=== PATIENT | male | born 1975 | race African-American/Black ===

== ENCOUNTER 2017-05-18 13:58 | Emergency (ER) | payer OTHER ==
[~2017-05-18] VITALS: Ht 185.4 cm; Wt 81.6 kg
--- NOTE | ~2017-05-18 | US115 ---
[facility] RADIOLOGY TEXT RESULTS PATIENT: NAVJOT BELLA LOCATION: [facility] : 71 UNIT #: [id number] AGE: [address]: Morelia Moran APRN SEX: M ORDER DR: [id number] [facility] [address]. [place], [place] [address] [id number] MR#: [id number] Acc #: [id number] NAME: NAVJOT BELLA : 1975 SEX: M STUDY DATE/TIME: 05/18/2017 16:23 UNIT: [facility] ROOM: STUDY DESCRIPTION: US Scrotum and Contents Attending Physician: Morelia Moran A.P.R.N. Ordering Physician: Ed Cheng Wheeler M.D. Primary Care Physician: No Primary Care Physician MEDICAL IMAGING REPORT This report is preliminary unless electronic signature is present EXAMINATION Bilateral scrotal ultrasound with Doppler imaging. DATE 05/18/2017 HISTORY Scrotal pain for 3 months, intermittent pain after exertion. COMPARISON CT of the abdomen and pelvis, 09/12/2015. No prior scrotal ultrasound at this institution for comparison. FINDINGS The right testicle measures 3.3 x 2.3 x 4.2 cm. The left testicle measures 2.9 x 2.3 x 4.2 cm. Both testicles demonstrate normal homogeneous echotexture without cystic or solid abnormality. No mike scrotal hydrocele is identified. Epididymides appear within normal limits. Small right scrotal varicocele is incidentally noted. IMPRESSION 1. Small right scrotal varicocele. 2. Otherwise, unremarkable scrotal ultrasound. Normal sonographic appearance of the testicles. Normal flow is documented into each testicle. Dictated by... Doris Lujan M.D. THIS IS AN ELECTRONICALLY VERIFIED REPORT Dorsi Lujan M.D. at 05/19/2017 2:02 PM [facility]/jt [facility] RADIOLOGY TEXT RESULTS PATIENT: NAVJOT BELLA [id number] : 71 UNIT #: [id number] AGE: [address]: Morelia Moran APRN SEX: M ORDER DR: TD: 05/18/2017 22:48 JOB #: [id number] MEDICAL IMAGING REPORT Page 1 of 1 COPY
[~2017-05-18 13:58] MED LIST: ACETAMINOPHEN PO; EC-NAPROSYN500 MG PO; FLEXERIL PO; HYDROCODONE-APA1 T33 PO; IBUPROFEN PO; MEDROL PO; NICOTINE T1 PATCH .2 TOP; NO MEDICATIONS; PEN-VEE K PO; PROTONIX PO; ROBITUSSIN-DM120 ML PO; TYLENOL #3 PO; VIBRAMYCIN100 M1 PO; VICODIN 5/500 T1 TAB PO
[2017-05-18 14:54] LABS: URINE SOURCE CLEAN CATCH
[2017-05-18 15:10] LABS: URINE APPEARANCE CLEAR; URINE BILIRUBIN NEG (NEG); URINE BLOOD NEG (NEG); URINE COLOR YELLOW; URINE GLUCOSE NEG (NEG); URINE KETONE TRACE (NEG); URINE LEUKOCYTE ESTERASE NEG (NEG); URINE NITRATE NEG (NEG); URINE PH 5.5 (5-8); URINE PROTEIN NEG (NEG); URINE SPECIFIC GRAVITY 1.028 (1.003-1.035)
[2017-05-18 15:17] LABS: CULTURE INDICATED? NO
[2017-05-18 15:39] LABS: BASOPHIL% 0.5 % (0-2.5); EOSINOPHIL# 0.1 X10e3 (0-0.7); EOSINOPHIL% 1.4 % (0.0-7.0); HEMATOCRIT 47.9 % (38.0-50.0); LYMPHOCYTE% 23.5 % (17.0-45.0); MEAN CELL VOLUME 96.7 FL (83-96); MEAN CORPUSCULAR HEMOGLOBIN 32.3 PG (28-34); MEAN CORPUSCULAR HGB CONC 33.4 g/dL (30-36); MEAN PLATELET VOLUME 8.5 FL (6.5-11.5); MONOCYTE# 0.7 X10e3 (0-1.0); MONOCYTE% 7.7 % (3.0-12.0); NEUTROPHIL# 5.7 X10e3 (1.5-7.1); NEUTROPHIL% 66.9 % (40-75); PLATELET COUNT 223 X10e3 (140-420); RED BLOOD COUNT 4.95 X10e (3.90-5.60); RED CELL DISTRIBUTION WIDTH 13.5 % (11.0-15.5); WHITE BLOOD COUNT 8.5 X10e3 (4.0-10.5)
[2017-05-18 15:42] LABS: DIFF IND NO
[2017-05-18 15:59] LABS: ALBUMIN SERUM 4.4 g/dL (3.5-5.0); BILIRUBIN,TOTAL 1.9 mg/dL (0.2-2.0); BUN/CREATININE RATIO 8.46; CALCIUM SERUM 9.3 mg/dL (8.4-10.2); CREATININE SERUM 1.3 mg/dL (0.6-1.4); GLOM FILT RATE Estimated 77.5 mL/min (>60); POTASSIUM 3.8 mmol/L (3.5-5.1); PROTEIN TOTAL SERUM 7.4 g/dL (6.0-8.3)
[2017-05-22 11:44] LABS: CHLAMYDIA TRACH Not Detected (Not Detected); N GONOR Not Detected (Not Detected)
== END 2017-05-18 17:34 | disposition home or self-care (01) ==
LOC: CFTX 13:58 → CED 13:58 → CFTX 16:37
PROVIDERS: Nurse Practitioner
DX: N50.82 Scrotal pain (principal); R39.11 Hesitancy of micturition; F17.210 Nicotine dependence, cigarettes, uncomplicated
CPT/HCPCS: 36415; 76870; 80053; 81003; 85025; 87491; 87591; 93976; 99284